=== PATIENT | female | born 1970 | race Caucasian/White ===

== ENCOUNTER 2018-03-20 21:11 | Emergency (ER) | payer MEDICARE, MEDICAID ==
[~2018-03-20] VITALS: Ht 170.2 cm; Wt 58.0 kg
[2018-03-20 21:19] VITALS: BP 142/90
== END 2018-03-20 22:30 | disposition left against medical advice (07) ==
LOC: ER 21:50
DX: K08.89 Other specified disorders of teeth and supporting structures (principal); Z53.21 Procedure and treatment not carried out due to patient leaving prior to being seen by health care provider